=== PATIENT | male | born 1955 | race American Indian/Alaskan Native ===

== ENCOUNTER 2021-03-15 12:47 | Observation (INO) | payer MEDICAID, MEDICARE ==
--- NOTE | 2021-03-15 13:32 | Emergency Department Report ---
ED General Adult HPI - General Chief complaint: Medical Clearance Stated complaint: CLOGGED PICC Source: patient, EMS Mode of arrival: Stretcher Limitations: No Limitations - History of Present Illness Initial comments: CC: clogged PEG tube HPI: This is a 65 yo male with hx of CVA and aphasia who presents with obstructed PEG tube. He denies any complaints with yes no answers. He presents from [facility] [place]. PEG tube inserted for the last 12 hours. I have reviewed the medication list provided by [facility] including Pravastatin, aspirin, lisinopril, amlodipine, fluoxetine, NovoLog, acetaminophen, Percocet, tramadol, carvedilol, hydralazine -: unknown Severity scale (0 -10): 0 Consistency: constant Improves with: none Worsens with: none Treatments Prior to Arrival: none - Related Data Allergies Allergy/AdvReac Type Severity Reaction Status Date / Time No Known Allergies Allergy Unverified 03/15/21 12:53 ED Review of Systems ROS: Stated complaint: CLOGGED PICC Other details as noted in HPI Comment: Unobtainable due to pts medical conditions (aphasia) ED Past Medical Hx - Past Medical History Previous Medical History?: Yes Hx CVA: Yes Hx Diabetes: Yes Additional medical history: APHASIA - Social History Substance Use Type: None ED Physical Exam - General Limitations: No Limitations, Language Barrier (Aphasia) General appearance: alert, in no apparent distress - Head Head exam: Present: atraumatic, normocephalic - Eye Eye exam: Present: normal appearance - ENT ENT exam: Present: mucous membranes moist - Neck Neck exam: Present: normal inspection, full ROM - Respiratory Respiratory exam: Present: normal lung sounds bilaterally. Absent: respiratory distress, wheezes, rales - Cardiovascular Cardiovascular Exam: Present: regular rate, normal rhythm, normal heart sounds. Absent: systolic murmur, diastolic murmur, rubs, gallop - GI/Abdominal GI/Abdominal exam: Present: soft, normal bowel sounds, other (Gastrostomy tube present). Absent: distended, tenderness, guarding, rebound - Rectal Rectal exam: Present: deferred - Extremities Exam Extremities exam: Present: other (Flexed contracted left upper extremity) - Neurological Exam Neurological exam: Present: alert - Psychiatric Psychiatric exam: Present: normal affect, normal mood - Skin Skin exam: Present: warm, dry, intact, normal color. Absent: rash ED Course Vital Signs 03/15/21 12:49 Temperature 98.1 F Pulse Rate 87 Respiratory 18 Rate Blood Pressure 126/86 [Left] O2 Sat by Pulse 98 Oximetry ED Medical Decision Making - Lab Data Result diagrams: 03/15/21 14:08 03/15/21 14:08 - Medical Decision Making I have consulted Dr. Cunningham cost recorder marketing communications associate. He will replace the PEG tube tomorrow. Mr. Katz has been accepted to the hospitalist service by Dr. Thakkar CBC within normal limits with normal platelet count PT PTT within normal limits nonspecific elevation of AST ALT otherwise chemistry within normal limits. Critical care attestation.: If time is entered above; I have spent that time in minutes in the direct care of this critically ill patient, excluding procedure time. ED Disposition Clinical Impression: PEG tube malfunction, CVA (cerebral vascular accident) Disposition: ADMITTED INPATIENT Is pt being admited?: Yes Does the pt Need Aspirin: No Condition: Stable
[2021-03-15 14:27] LABS: Basophils % (Auto) 0.2 % (0.0-1.8); Eosinophils # (Auto) 0.2 K/mm3 (0.0-0.4); Eosinophils % (Auto) 3.7 % (0.0-4.3); Hematocrit 38.9 % (35.5-45.6); Hemoglobin 12.1 gm/dl (11.8-15.2); Lymphocytes # (Auto) 1.6 K/mm3 (1.2-5.4); Lymphocytes % (Auto) 30.6 % (13.4-35.0); Mean Corpuscular HGB Conc 31 % (32-34); Mean Corpuscular Volume 86 fl (84-94); Monocytes # (Auto) 0.7 K/mm3 (0.0-0.8); Monocytes % (Auto) 13.4 % (0.0-7.3); Platelet Count 433 K/mm3 (140-440); Red Blood Count 4.53 M/mm3 (3.65-5.03); Red Cell Distribution Width 14.4 % (13.2-15.2)
[2021-03-15 14:34] LABS: INR 0.94 (0.87-1.13)
[2021-03-15 14:35] LABS: Partial Thromboplastin Time 33.1 Sec. (24.2-36.6)
[2021-03-15 14:49] LABS: Alanine Aminotransferase 74 units/L (7-56); Albumin 3.7 g/dL (3.9-5); Blood Urea Nitrogen 19 mg/dL (9-20); Calcium 9.7 mg/dL (8.4-10.2); Hemolysis Index 6
[2021-03-15 14:58] LABS: BUN/Creatinine Ratio 27
[2021-03-16] MEDS ORDERED: ONDANSETRON 4 MG/2 ML INJ IV PRN (00:20)
[2021-03-16] MEDS ORDERED: MORPHINE 2 MG/1 ML INJ IV PRN (00:20)
[2021-03-16] MEDS ORDERED: ACETAMINOPHEN 325 MG TAB PO PRN (00:20)
--- NOTE | 2021-03-16 00:20 | History and Physical Report ---
History of Present Illness Date of examination: 03/15/21 History of present illness: CC: clogged PEG tube HPI: This is a 65 yo male with hx of CVA and aphasia who presents with obstructed PEG tube. He denies any complaints with yes no answers. He presents from [facility] [place]. PEG tube inserted for the last 12 hours. I have reviewed the medication list provided by [facility] Pravastatin, aspirin, lisinopril, amlodipine, fluoxetine, NovoLog, acetaminophen, Percocet, tramadol, carvedilol, hydralazine -: unknown Severity scale (0 -10): 0 Consistency: constant Improves with: none Worsens with: none Treatments Prior to Arrival: none - Related Data Allergies Allergy/AdvReac Type Severity Reaction Status Date / Time No Known Allergies Allergy Unverified 03/15/21 12:53 - Past Medical History Previous Medical History?: Yes Hx CVA: Yes Hx Diabetes: Yes Additional medical history: APHASIA - Social History Substance Use Type: None Review of Systems ROS: Stated complaint: CLOGGED PICC Other details as noted in HPI Comment: Unobtainable due to pts medical conditions (aphasia) Medications and Allergies Allergies Allergy/AdvReac Type Severity Reaction Status Date / Time No Known Allergies Allergy Verified 03/16/21 00:26 Exam - Constitutional Vitals: Temp Pulse Resp BP Pulse Ox 98.1 F 87 18 126/86 98 03/15/21 12:49 03/15/21 12:49 03/15/21 12:49 03/15/21 12:49 03/15/21 12:49 Results - Labs CBC & Chem 7: 03/15/21 14:08 03/16/21 05:37 Labs: Laboratory Last Values WBC 5.2 K/mm3 (4.5-11.0) 03/15/21 14:08 RBC 4.53 M/mm3 (3.65-5.03) 03/15/21 14:08 Hgb 12.1 gm/dl (11.8-15.2) 03/15/21 14:08 Hct 38.9 % (35.5-45.6) 03/15/21 14:08 MCV 86 fl (84-94) 03/15/21 14:08 MCH 27 pg (28-32) L 03/15/21 14:08 MCHC 31 % (32-34) L 03/15/21 14:08 RDW 14.4 % (13.2-15.2) 03/15/21 14:08 Plt Count 433 K/mm3 (140-440) 03/15/21 14:08 Lymph % (Auto) 30.6 % (13.4-35.0) 03/15/21 14:08 Morrison % (Auto) 13.4 % (0.0-7.3) H 03/15/21 14:08 Eos % (Auto) 3.7 % (0.0-4.3) 03/15/21 14:08 Baso % (Auto) 0.2 % (0.0-1.8) 03/15/21 14:08 Lymph # (Auto) 1.6 K/mm3 (1.2-5.4) 03/15/21 14:08 Morrison # (Auto) 0.7 K/mm3 (0.0-0.8) 03/15/21 14:08 Eos # (Auto) 0.2 K/mm3 (0.0-0.4) 03/15/21 14:08 Baso # (Auto) 0.0 K/mm3 (0.0-0.1) 03/15/21 14:08 Seg Neutrophils % 52.1 % (40.0-70.0) 03/15/21 14:08 Seg Neutrophils # 2.7 K/mm3 (1.8-7.7) 03/15/21 14:08 PT 13.6 Sec. (12.2-14.9) 03/15/21 14:08 INR 0.94 (0.87-1.13) 03/15/21 14:08 APTT 33.1 Sec. (24.2-36.6) 03/15/21 14:08 Sodium 138 mmol/L (137-145) 03/15/21 14:08 Potassium 4.5 mmol/L (3.6-5.0) 03/15/21 14:08 Chloride 102.2 mmol/L (98-107) 03/15/21 14:08 Carbon Dioxide 23 mmol/L (22-30) 03/15/21 14:08 Anion Gap 17 mmol/L 03/15/21 14:08 BUN 19 mg/dL (9-20) 03/15/21 14:08 Creatinine 0.7 mg/dL (0.8-1.3) L 03/15/21 14:08 Estimated GFR > 60 ml/min 03/15/21 14:08 BUN/Creatinine Ratio 27 % 03/15/21 14:08 Glucose 77 mg/dL (75-100) 03/15/21 14:08 Calcium 9.7 mg/dL (8.4-10.2) 03/15/21 14:08 Total Bilirubin 0.50 mg/dL (0.1-1.2) 03/15/21 14:08 AST 47 units/L (5-40) H 03/15/21 14:08 ALT 74 units/L (7-56) H 03/15/21 14:08 Alkaline Phosphatase 61 units/L (35-129) 03/15/21 14:08 Total Protein 7.7 g/dL (6.3-8.2) 03/15/21 14:08 Albumin 3.7 g/dL (3.9-5) L 03/15/21 14:08 Albumin/Globulin Ratio 0.9 % 03/15/21 14:08 Assessment and Plan Advance Directives: Yes - Patient Problems (1) PEG tube malfunction Current Visit: Yes Status: Acute (2) CVA (cerebral vascular accident) Current Visit: Yes Status: Acute (3) DVT prophylaxis Current Visit: Yes Status: Acute
[2021-03-16] MEDS ORDERED: SODIUM CHLORIDE 0.9% 1000 ML 1,000 ML IV SCH (00:30)
[2021-03-16 06:38] LABS: BUN/Creatinine Ratio 30; Blood Urea Nitrogen 24 mg/dL (9-20); Calcium 9.6 mg/dL (8.4-10.2); Hemolysis Index 7
[2021-03-16] MEDS ORDERED: HEPARIN 5,000 UNIT/1 ML VIAL SUB-Q SCH (10:00)
--- NOTE | 2021-03-16 12:16 | Procedure Note ---
Date of procedure: 03/16/21 Pre-op diagnosis: Clogged G-tube Post-op diagnosis: same Procedure: G-tube replacement Brother, Topher Katz, was called and a message was left on voicemail. Tube was placed due to medical necessity. Patient has existing balloon type XVI Albanian G-tube in place Balloon was deflated and tube was removed atraumatically. Initially, I tried to place a 20 Albanian G-tube through the same opening, but this was unsuccessful due to narrow lumen. Therefore, a 16 Albanian replacement G-tube was placed easily through the opening, and the balloon was inflated with 5 mL of water. External bumper was fixed at 3 cm. Confirmed with auscultation. Minimal blood at the stoma site due to trauma. Otherwise, no immediate complications. May use G-tube. Anesthesia: none Surgeon: QASIM LOPEZ Estimated blood loss: minimal Pathology: none Condition: stable Disposition: no change (May discharge to [place].)
[2021-03-16 12:33] VITALS: BP 121/78
== END 2021-03-16 14:00 | disposition home or self-care (01) ==
LOC: EDBD → ED 12:47 → INTOOBSV 03-16 03:09 → 3A 03-16 03:09
PROVIDERS: ADMIT Internal Medicine; ATTEND Internal Medicine
DX: K94.23 Gastrostomy malfunction (principal); I63.9 Cerebral infarction, unspecified; E11.9 Type 2 diabetes mellitus without complications; R29.700 NIHSS score 0
CPT/HCPCS: 36415; 43762; 80048; 80053; 85025; 85610; 85730; 99284; G0378